=== PATIENT | male | born 1985 ===

== ENCOUNTER 2018-07-11 10:35 | Day surgery (SDC) | payer OTHER ==
[~2018-07-11] VITALS: Ht 182.9 cm; Wt 93.9 kg
[2018-07-11] VITALS (9 sets, daily range): BP systolic 107–144; BP diastolic 61–93
--- NOTE | 2018-07-11 07:14 | Pre-Procedure Note/Attestation ---
Pre-Procedure Note/Attestation Complete Prior to Procedure Planned Procedure: left Procedure Narrative: shoulder arthroscopy, sad Indications for Procedure Pre-Operative Diagnosis: left shoulder impingement Attestation I attest that I discussed the nature of the procedure; its benefits; risks and complications; and alternatives (and the risks and benefits of such alternatives ), prior to the procedure, with the patient (or the patient's legal education courses sales representative). I attest that, if there was a reasonable possibility of needing a blood transfusion, the patient (or the patient's legal education courses sales representative) was given the [facility] standardized written summary, pursuant to the Kit Renzo Blood Safety Act ([place] Health and Safety Code # 1645, as amended). I attest that I re-evaluated the patient just prior to the surgery and that there has been no change in the patient's H&P, except as documented below: Alex Em MD Jul 11, 2018 07:14
--- NOTE | 2018-07-11 07:14 | Operative Note - PDOC ---
Operative Note Operative Note Pre-op Diagnosis: left shoulder impingement Procedure: see op report Post-op Diagnosis: same as pre-op plus Operative Findings: consistent w/pre-op dx studies Anesthesia: general, regional Specimen: none Complications: none Condition: stable Estimated Blood Loss: none Implant(s) used?: No Alex Em MD Jul 11, 2018 07:14
[~2018-07-11 10:35] MED LIST: D5 1/2NS 1,000 ML IV SCH; HYDROmorphone 1mg/ml Carpuject SUBQ PRN; Tylenol #3 tab (300mg/30mg) ORAL PRN; ceFAZolin 1gm in D5W 55ml IVP ONE; celeBREX 200mg Cap **SURGERY PATIENTS ONLY ORAL ONE; oxyCONTIN 20mg tab ORAL ONE
[2018-07-11] MEDS ORDERED: LORAZEPAM1 MG ORAL (11:18)
[2018-07-11] MEDS ORDERED: TYLENOL EXTRA500 MG ORAL (11:18)
[2018-07-11] MEDS ORDERED: oxyCONTIN 20mg tab ORAL ONE (11:26)
[2018-07-11] MEDS ORDERED: celeBREX 200mg Cap **SURGERY PATIENTS ONLY ORAL ONE (11:26)
[2018-07-11] MEDS ORDERED: Ropivacaine 5mg/ml Vial 30ml INJ ONE ×2 (11:32→11:46)
[2018-07-11] MEDS ORDERED: Propofol 200mg/20ml IV ONE (11:32)
[2018-07-11] MEDS ORDERED: Dexamethasone 4mg/ml vial ONE (11:32)
[2018-07-11] MEDS ORDERED: Lidocaine 1% MPF 10mg/ml 5ml ONE (11:32)
[2018-07-11] MEDS ORDERED: Sodium Chloride 10ml vial INJ ONE (11:32)
[2018-07-11] MEDS ORDERED: LR 1000ml 1,000 ML IVLG SCH (11:40)
--- NOTE | 2018-07-11 11:43 | Anethesia Preoperative Eval ---
Anesthesia Pre-op PMH/ROS General Date of Evaluation: Jul 11, 2018 Time of Evaluation: 11:44 Anesthesiologist: Bradley ASA Score: ASA 2 Mallampati Score Class I : Soft palate, uvula, fauces, pillars visible Class II: Soft palate, uvula, fauces visible Class III: Soft palate, base of uvula visible Class IV: Only hard plate visible Mallampati Classification: Class I Surgeon: Manav Diagnosis: L Shoulder Pain Surgical Procedure: L Shoulder Arthroscopy Anesthesia History: none Social History: current smoker Family History: no anesthesia problems Allergies: Coded Allergies: No Known Allergies (Unverified , 07/11/18) Medications: see eMAR Past Medical History Pulmonary: Reports: other - Spontaneous Pneumothorax Neurologic/Psychiatric: Reports: depression/anxiety PSxH Narrative: VATS Anesthesia Pre-op Phys. Exam Physician Exam Last Vital Signs Date Time Temp Pulse Resp B/P (MAP) Pulse Ox O2 Delivery O2 Flow Rate FiO2 07/11/18 11:04 Room Air 07/11/18 11:04 98.5 76 18 135/79 (97) 98 98.5 Constitutional: NAD Neurologic: CN 2-12 intact Cardiovascular: RRR Respiratory: CTA Gastrointestinal: S/NT/ND Airway Exam Mallampati Score: Class I MO: full ROM: full Teeth: intact Anesthesia Pre-op A/P Pre-Antibiotics Dru Gram Ancef IV Given Within 1 Hr of Incision: Yes Time Given: 12:11 Deion Huerta MD Jul 11, 2018 11:43
[2018-07-11] MEDS ORDERED: oxyCODONE HCL/Acetaminophen 5/325mg ORAL PRN (11:45)
[2018-07-11] MEDS ORDERED: Midazolam 2mg/2ml Inj IVP PRN (11:45)
[2018-07-11] MEDS ORDERED: Norco 5mg/325mg tab ORAL PRN ×2 (11:45→15:00)
[2018-07-11] MEDS ORDERED: Hydromorphone 0.5mg/0.5ml inj IVP PRN (11:45)
[2018-07-11] MEDS ORDERED: LORazepam Inj 2mg/ml 1ml IV PRN (11:45)
[2018-07-11] MEDS ORDERED: HYDROcodone/Acetamin 7.5/325 tab ORAL PRN (11:45)
[2018-07-11] MEDS ORDERED: LR 1000ml ONE (11:45)
[2018-07-11] MEDS ORDERED: Atropine Sulfate 0.4mg/ml inj IVP PRN (11:45)
[2018-07-11] MEDS ORDERED: Ketorolac 30mg Inj IV PRN ×2 (11:45)
[2018-07-11] MEDS ORDERED: NS Irrig 1000ml ONE (11:45)
[2018-07-11] MEDS ORDERED: NS Irrig 4000ml IRRIG ONE (11:45)
[2018-07-11] MEDS ORDERED: fentaNYL 100 mcg/2 mL IV PRN (11:45)
[2018-07-11] MEDS ORDERED: Metoclopramide 10mg/2ml Inj IVP PRN (11:45)
[2018-07-11] MEDS ORDERED: Labetalol 5mg/ml 20ml vial IV PRN (11:45)
[2018-07-11] MEDS ORDERED: DiphenhydrAMINE 50mg/ml Inj IVP PRN (11:45)
[2018-07-11] MEDS ORDERED: Meperidine 50mg/ml Inj(FOR RIGORS ONLY) IVP PRN (11:45)
[2018-07-11] MEDS ORDERED: Kenalog-40 1ml Vial ONE (11:46)
[2018-07-11] MEDS ORDERED: Bupivacaine w/Epi 0.25% 30ml Vial INJ ONE ×2 (11:46→12:06)
[2018-07-11] MEDS ORDERED: Morphine Sulfate PF 10 ML ONE (11:46)
[2018-07-11] MEDS ORDERED: EPINEPHrine 1mg/1ml Amp ONE ×3 (11:46→12:06)
[2018-07-11] MEDS ORDERED: Bupivacaine 0.5% Inj 30 ml vial INJ ONE (12:06)
--- NOTE | 2018-07-11 13:25 | Immediate Post-Op Evaluation ---
Immediate Post-Op Evalulation Immediate Post-Op Evalulation Procedure: L Shoulder Arthroscopy Date of Evaluation: Jul 11, 2018 Time of Evaluation: 13:35 IV Fluids: 600 LR Blood Products: 0 Estimated Blood Loss: 5 Urinary Output: 0 Blood Pressure Systolic: 108 Blood Pressure Diastolic: 61 Pulse Rate: 72 Respiratory Rate: 16 O2 Sat by Pulse Oximetry: 100 Temperature (Fahrenheit): 97.5 Pain Score (1-10): 1 Nausea: No Vomiting: No Complications 0 Patient Status: awake, reacts, patent, none Hydration Status: adequate Dru Gram Ancef IV Given Within 1 Hr of Incision: Yes Time Given: 12:11 Deion Huerta MD Jul 11, 2018 13:25
--- NOTE | 2018-07-11 13:26 | 48 Hour Post Anesthesia Eval ---
Post Anesthesia Evaluation Procedure: L Shoulder Arthroscopy Date of Evaluation: Jul 11, 2018 Time of Evaluation: 15:43 Blood Pressure Systolic: 122 0: 73 Pulse Rate: 71 Respiratory Rate: 18 Temperature (Fahrenheit): 98.3 O2 Sat by Pulse Oximetry: 100 Airway: patent Nausea: No Vomiting: No Pain Intensity: 1 Hydration Status: adequate Cardiopulmonary Status: Stable Mental Status/LOC: patient returned to baseline Follow-up Care/Observations: 0 Post-Anesthesia Complications: 0 Follow-up care needed: ready to discharge Deion Huerta MD Jul 11, 2018 13:26
--- NOTE | 2018-07-11 16:30 | Operative Note - Dictated ---
DATE OF OPERATION: 07/11/2018 PREOPERATIVE DIAGNOSIS: Left shoulder traumatic impingement syndrome. POSTOPERATIVE DIAGNOSIS: Left shoulder traumatic impingement syndrome. PROCEDURE: 1. Diagnostic arthroscopy to the left shoulder 2, Subacromial decompression bursectomy, and release of CA ligament. SURGEON: Alex Em M.D. ANESTHESIA: Interscalene with general. INDICATION FOR PROCEDURE: The patient is a pleasant gentleman, who has had significant neck and shoulder pain. He had tendinitis/bursitis of the left shoulder. Failed conservative treatment course and injection. Has significant difficulties with activities of daily living. Elected to undergo left shoulder arthroscopy and decompression bursectomy. Risks, limitations, expectations, and complications of procedure were discussed in detail including the fact that the pain may be still present postprocedure given the fact that he has significant disc herniation. Risks, limitations, expectations, and complications of procedure were discussed in detail. All questions were addressed. DESCRIPTION OF PROCEDURE: After informed consent was obtained, the patient was brought to the operating room. The patient was placed under interscalene general anesthesia. The patient was then placed in beach-chair position. The left shoulder was prepped and draped in a sterile manner. Time-out was performed. Inferolateral stab incisions then made. Trocar was introduced into the glenohumeral joint. No chondral damage. The anterior labrum appeared to be intact along with the superior labrum. The biceps tendon was followed out and noted to be intact along with subscapularis. The rotator cuff was intact. The camera was then placed in the subacromial space. There was hypertrophic bursal tissue, which was debrided and the undersurface of the CA ligament off the acromion was identified as acromial spur. Once the acromial spur was identified, acromioplasty was started from lateral to medial and completed from posterior to anterior. Once that was completed, the bursectomy was completed in the axillary pouch. Once that was done, the instruments were removed. Portal sites were closed with 3-0 Monocryl sutures. Steri-Strips and a sterile dressing were applied. The patient was awoken and taken to recovery room with stable vital signs. ESTIMATED BLOOD LOSS: None. COMPLICATIONS: None. SPECIMENS: None. IMPLANTS: None. Alex Em M.D. DR: MYESHA JOB#: [id number] CC: [email or web address]
== END 2018-07-11 15:25 | disposition home or self-care (01) ==
LOC: SUR 10:35
DX: M75.42 Impingement syndrome of left shoulder (principal); F32.9 Major depressive disorder, single episode, unspecified; F41.9 Anxiety disorder, unspecified; F17.200 Nicotine dependence, unspecified, uncomplicated
CPT/HCPCS: 29822; J0171; J0690; J1100; J1885; J2250; J2274; J2405; J2704; J2795; J3301; 94003; 94150